=== PATIENT | female | born 1935 | race Asian ===

== ENCOUNTER 2019-09-14 21:10 | Inpatient (IN) | payer OTHER ==
[~2019-09-14] VITALS: Ht 160 cm; Wt 62.1 kg
[2019-09-14 21:19] VITALS: Ht 160 cm; Wt 62.1 kg
[2019-09-14 23:05] LABS: BASOPHIL % 1.1 % (0-2); PLATELET COUNT 170 x10^3mcL (130-400); RED CELL DISTRIBUTION WIDTH 13.7 % (11.5-14.5)
[2019-09-14 23:29] LABS: ALKALINE PHOSPHATASE 72 U/L (46-116); ALT/SGPT 27 U/L (14-59); AST/SGOT 21 U/L (15-37); CALCIUM 8.7 mg/dL (8.5-10.1); CARBON DIOXIDE 25.6 mmol/L (21-32); CHLORIDE SERUM 102 mmol/L (98-107); CREATININE SERUM 1.5 mg/dL (0.6-1.0); GLUCOSE SERUM 312 mg/dL (74-106); POTASSIUM SERUM 4.8 mmol/L (3.5-5.1); SODIUM SERUM 137 mmol/L (136-145); TOTAL PROTEIN, SERUM 7.4 g/dL (6.4-8.2)
[2019-09-14 23:30] LABS: ALBUMIN 3.2 g/dL (3.4-5.0)
[2019-09-15 00:14] LABS: UA SPECIFIC GRAVITY 1.015 (1.005-1.035); microscopic required? YES; urine erythrocyte NEGATIVE (NEGATIVE)
[2019-09-15] MEDS ORDERED: LYRICA75 M1 PO (00:14)
[2019-09-15] MEDS ORDERED: LEVOTHYROXINE0.1 M2 PO (00:14)
[2019-09-15] MEDS ORDERED: GOOD SENSE ASPI81 M3 PO (00:15)
[2019-09-15] MEDS ORDERED: COZAAR100 MG PO (00:15)
[2019-09-15] MEDS ORDERED: CARVEDILOL3.125 M1 PO (00:15)
[2019-09-15] MEDS ORDERED: SERTRALINE25 M1 PO (00:15)
[2019-09-15] MEDS ORDERED: SIMVASTATIN40 M1 PO (00:15)
[2019-09-15] MEDS ORDERED: NATURAL VITAM1000 MG PO (00:16)
[2019-09-15] MEDS ORDERED: FISH OIL1000 MG PO (00:16)
[2019-09-15] MEDS ORDERED: CALTRATE 600 +1 EACH PO (00:16)
[2019-09-15] MEDS ORDERED: MAGNESIUM OXID400 MG PO (00:17)
[2019-09-15] MEDS ORDERED: GINKGO BILOBA120 M1 PO (00:18)
[2019-09-15] MEDS ORDERED: STOOL SOFTENER1 TAB PO (00:18)
[2019-09-15] MEDS ORDERED: BIOTIN10000 MCG PO (00:18)
[2019-09-15 02:26] LABS: T3 TOTAL 0.56 ng/mL
[2019-09-15 02:29] LABS: FREE T4 1.28 ng/dL (0.76-1.46); T4(THYROXINE) 8.7 ug/dL (4.7-13.3)
[2019-09-15 02:30] LABS: CHOLESTEROL/HDL RATIO 2.6
[2019-09-15 02:49] VITALS: BP 146/68
[2019-09-15 05:39] LABS: BASOPHIL % 0.6 % (0-2); PLATELET COUNT 159 x10^3mcL (130-400); RED CELL DISTRIBUTION WIDTH 13.8 % (11.5-14.5)
[2019-09-15 05:50] LABS: CALCIUM 8.7 mg/dL (8.5-10.1); CARBON DIOXIDE 22.9 mmol/L (21-32); CHLORIDE SERUM 107 mmol/L (98-107); CREATININE SERUM 1.2 mg/dL (0.6-1.0); GLUCOSE SERUM 214 mg/dL (74-106); MAGNESIUM 1.8 mg/dL (1.8-2.4); PHOSPHOROUS 2.4 mg/dL (2.5-4.9); SODIUM SERUM 140 mmol/L (136-145)
[2019-09-15 12:01] LABS: UA SPECIFIC GRAVITY 1.015 (1.005-1.035); microscopic required? YES; urine erythrocyte TRACE (NEGATIVE)
[2019-09-15 15:06] VITALS: BP 157/73
[2019-09-15 17:21] VITALS: BP 114/75
[2019-09-15 21:55] VITALS: BP 139/62
[2019-09-16 06:44] LABS: BASOPHIL % 0.6 % (0-2); PLATELET COUNT 210 x10^3mcL (130-400); RED CELL DISTRIBUTION WIDTH 13.6 % (11.5-14.5)
[2019-09-16 06:50] LABS: CALCIUM 9.1 mg/dL (8.5-10.1); CHLORIDE SERUM 101 mmol/L (98-107); CREATININE SERUM 1.4 mg/dL (0.6-1.0); GLUCOSE SERUM 243 mg/dL (74-106); MAGNESIUM 1.9 mg/dL (1.8-2.4); PHOSPHOROUS 2.8 mg/dL (2.5-4.9); POTASSIUM SERUM 4.2 mmol/L (3.5-5.1); SODIUM SERUM 137 mmol/L (136-145)
[2019-09-16 07:57] VITALS: BP 108/49
[2019-09-16 12:51] VITALS: BP 114/60
[2019-09-16 16:41] VITALS: BP 136/83
[2019-09-16 21:19] VITALS: BP 144/67
[2019-09-17] VITALS (7 sets, daily range): BP systolic 95–137; BP diastolic 46–72
[2019-09-17 06:42] LABS: BASOPHIL % 0.6 % (0-2); PLATELET COUNT 196 x10^3mcL (130-400); RED CELL DISTRIBUTION WIDTH 13.7 % (11.5-14.5)
[2019-09-17 07:07] LABS: CALCIUM 9.2 mg/dL (8.5-10.1); CARBON DIOXIDE 25.6 mmol/L (21-32); CHLORIDE SERUM 102 mmol/L (98-107); CREATININE SERUM 1.3 mg/dL (0.6-1.0); GLUCOSE SERUM 231 mg/dL (74-106); POTASSIUM SERUM 4.6 mmol/L (3.5-5.1); SODIUM SERUM 136 mmol/L (136-145)
[2019-09-18 04:09] VITALS: BP 100/45
[2019-09-18 08:32] VITALS: BP 114/48
[2019-09-18] MEDS ORDERED: LEVAQUIN500 M1 PO (10:34)
[2019-09-18 12:03] VITALS: BP 105/51
[2019-09-18 12:56] VITALS: BP 105/51
== END 2019-09-18 16:27 | disposition home health service (06) | DRG 640 ==
LOC: ED 21:10 → DU 09-15 00:20 → MU 09-17 13:06
PROVIDERS: Emergency Medicine; Internal Medicine; ADMIT Family Medicine
DX: E86.0 Dehydration (principal); N17.0 Acute kidney failure with tubular necrosis; J44.1 Chronic obstructive pulmonary disease with (acute) exacerbation; E44.1 Mild protein-calorie malnutrition; N39.0 Urinary tract infection, site not specified; B96.20 Unspecified Escherichia coli [E. coli] as the cause of diseases classified elsewhere; R55 Syncope and collapse; J20.9 Acute bronchitis, unspecified; H10.30 Unspecified acute conjunctivitis, unspecified eye; E11.65 Type 2 diabetes mellitus with hyperglycemia; I67.1 Cerebral aneurysm, nonruptured; E11.42 Type 2 diabetes mellitus with diabetic polyneuropathy; E83.39 Other disorders of phosphorus metabolism; I10 Essential (primary) hypertension; E78.5 Hyperlipidemia, unspecified; E03.9 Hypothyroidism, unspecified; G40.909 Epilepsy, unspecified, not intractable, without status epilepticus; F32.9 Major depressive disorder, single episode, unspecified; Z68.26 Body mass index [BMI] 26.0-26.9, adult; Z79.84 Long term (current) use of oral hypoglycemic drugs
CPT/HCPCS: 82962; 83880; 84439; 87804; 92526-GN; 92610-GN; 97110-GP; 97112-GP; 97116-GP; 97530-GP; G0378; J0696; J2405; J2543; J7060; J7620; Q0092; Q0162